=== PATIENT | male | born 1995 | race Caucasian/White ===

== ENCOUNTER 2018-11-05 17:02 | Emergency (ER) | payer SELFPAY ==
[2018-11-05] MEDS: ONDANSETRON (ODT) 4 MG TAB ODT (18:31)
[2018-11-05] MEDS: HYDROCODONE/APAP (5/325) TAB PO (18:31)
== END 2018-11-05 20:48 | disposition home or self-care (01) ==
LOC: FTE 17:02
DX: R51 Headache (principal); J45.909 Unspecified asthma, uncomplicated; F17.210 Nicotine dependence, cigarettes, uncomplicated
CPT/HCPCS: 70450; 72100; 73110; 73130-50; 99284-25